=== PATIENT | female | born 1975 | race Caucasian/White ===

== ENCOUNTER → 2016-11-20 | Outpatient (CLI) | payer OTHER ==
--- NOTE | 2016-11-20 10:50 | Diagnostic Imaging Report ---
INDICATION: Hereditary spastic paraparesis. FINDINGS: 3 views of the lumbar spine show good alignment. Body height is well maintained. Disc spaces well preserved. There is minimal hypertrophic lipping along the endplates in the mid lumbar region anteriorly. Facets show good alignment. No pars defects. No fracture is demonstrated. SI joints are symmetrical. IMPRESSION: Mild degenerative endplate changes noted anteriorly in the lumbar spine. Dictated by: Dictated on workstation # [id number]
== END ==
LOC: RAD 09:13
PROVIDERS: ATTEND Surgery
DX: Z02.71 Encounter for disability determination (principal)
CPT/HCPCS: 72100